=== PATIENT | male | born 1950 | race Caucasian/White ===

== ENCOUNTER → 2017-03-27 | Outpatient (CLI) | payer OTHER ==
[~2017-03-27] MED LIST: ASPI81TA94 PO; CALC500T6 PO; CETI10CA8 PO; DOC100 PO; LEV500 PO; METR-1 PO; MULT-1097 PO; OMEP-218 PO; PER PO; SIMV-44 PO; TEST2.5G TD; VITA-175 PO; [UNRECOGNIZED DRUG - CODE] TP
== END ==
LOC: LAB 08:00
PROVIDERS: ATTEND Family Medicine
DX: E29.1 Testicular hypofunction (principal)
CPT/HCPCS: 36415; 84403

== ENCOUNTER → 2017-06-03 | Outpatient (CLI) | payer OTHER ==
--- NOTE | 2017-06-03 14:10 | RADIOLOGY IMAGING REPORT ---
FACILITY: [facility] PATIENT NAME: Gavin Erickson : 1950 MR: [id number] V: [id number] EXAM DATE: [id number] ORDERING PHYSICIAN: PATRICIA VALENCIA TECHNOLOGIST: Location: [facility] - [place] Patient: Gavin Erickson : 1950 Visit/Account:[id number] Date of Sevice: 06/03/2017 Exam type: 5 views right knee History: Right knee pain, prior to the plateau fracture Comparison: 12/04/2006. Findings: Postoperative changes are noted from repair of a right medial tibial plateau fracture with a metallic sideplate and several transcortical screws. No hardware complication is seen. Mild degenerative ch anges in the medial compartment are noted. There may be a trace knee effusion. No acute osseous abn ormality seen. IMPRESSION: 1. Postoperative changes are noted from repair of a right medial tibial plateau fracture without abby dware complication. No acute osseous abnormality. 2. Osteopenia. Report Dictated By: Jessee Villatoro MD at 06/03/2017 2:03 PM Report E-Signed By: Jessee Villatoro MD at 06/03/2017 2:05 PM WSN:[email or web address]
== END ==
LOC: RAD 11:03
PROVIDERS: ATTEND Orthopaedic Surgery
DX: M85.88 Other specified disorders of bone density and structure, other site (principal); Z96.7 Presence of other bone and tendon implants

== ENCOUNTER 2017-07-22 14:15 | Outpatient (RCR) | payer OTHER ==
--- NOTE | 2017-06-10 13:53 | PT INITIAL EVALUATION ---
MEDICAL DIAGNOSIS: Right Knee Weakness and DJD TREATMENT DIAGNOSIS: Right Knee Weakness and DJD DATE OF ONSET: 06/09/17 SUBJECTIVE: Gavin is a 66 year old male presenting to physical therapy following the gradual onset and recent increase of R knee pain and weakness. Pt has a history of knee surgery on the R knee following tibial plateau fx with the insertion a plate and screws for stability. Recent imaging reports of the R knee describe DJD as well as some generalized edema in the posterior region without any hardware malfunction. Pt reports that he has also noticed R quad atrophy. Pt rates pain as 6-7/10 at worst with working out. Currently pain is rated at 2-3/10 with most pain on the medial anterior aspect with a generalized ache and tightness and occasional posterior knee pain and swelling. REHAB PROBLEM LIST: Increased Pain Decreased Strength Decreased Endurance Decreased Function Decreased ADL's Decreased Mobility PREVIOUS MEDICAL HISTORY: See EMR OCCUPATION: Retired OBJECTIVE: Pt shows slight R quad atrophy with mild edema present on the medial and posterior aspect of the R knee. ROM: B Knee ROM WFL Strength: LE MMT: Hip: Flexion: 4+/5 B, Ext: L 4/5, R 4-/5, Abd: L 4-/5, R 4+/5 , Add: B 4+/5. Knee: Ext: L 5/5, R 4+/5, Flexion: B 4+/5. Ankle: DF: B 5/5, PF : B 4/5. 1 RM: Quad: L 120#, R 90#. Hamstring: L 65#, R 58# Palpation: Pt is tender to palpation on the medial tibial plateau with hardware palpable along ridge. Special Tests: All knee ligamentous structures tested (-), slight increased MCL laxity Mobility: B Squat: Increased WB on L LE. SL Squat: R: significant contralateral hip collapse with lateral knee excursion. L: mild hip collapse. Other Objective Findings: Delayed VMO activation on 09/26 quad sets on the R. ASSESSMENT: Pt shows signs and symptoms consistent with decreased R knee mechanics secondary to hip weakness and poor neuromuscular activation. Physical therapy is indicated for this patient to improve knee mechanics to decrease pain and swelling and improve functional mobility with ADL's and recreational activities. Short Term Goals In 3 weeks pt will improve VMO activation with quad sets to equal with lateral quad activation on 11/26 for improved knee mechanics with ADL's. In 3 weeks pt will increase R hip abduction to 4/5 for improved function with ADL's and recreational activities. In 6 weeks pt will increase B LE MMT to >4/5 in all major muscle groups for improved function with ADL's and recreational activities. In 6 weeks pt will increase R quad 1 RM to >105# for improved functional balance between LE for decreased risk of injury and improved function with recreational activities and ADL's. Patient's Goals Decrease pain and improve strength. PLAN: Patient to be seen for Manual Therapy/STM/MET Strengthening/condition Ice/Heat Range of Motion Spinal Stabilization Ultrasound Stretching Iontophoresis Neuromuscular Re-ed Closed Chain Program Electrical Stim Posture/Body mechanics Gait Trg/Balance Trg Biofeedback Home Exercise Program Mech./Manual Traction Therapeutic Activities Pelvic Floor 2-3x/Week for 6 Weeks If you have any questions, comments, or concerns about this report or plan, please contact me at . Thank you, Mini Waters, PT, DPT, CLT [facility]
--- NOTE | 2017-07-11 09:18 | PT PLAN OF CARE ---
Physician: Toby Fay MD Patient is being seen: 2-3x/Day Therapist: Mini Waters, PT, DPT, CLT Medical Diagnosis: Right Knee Weakness and DJD Treatment Diagnosis: Right Knee Weakness and DJD Date of Onset: 06/09/17 Date of Initial Evaluation: 06/09/17 Date patient was last seen: 07/11/17 Number of treatments: 10 Number of cancellations/No shows: 1 INTERVENTIONS: Manual Therapy/STM/MET Strengthening/condition Ice/Heat Range of Motion Spinal Stabilization Ultrasound Stretching Iontophoresis Neuromuscular Re-ed Closed Chain Program Electrical Stim Posture/Body mechanics Gait Trg/Balance Trg Biofeedback Home Exercise Program Mech./Manual Traction Therapeutic Activities Pelvic Floor GOALS: In 3 weeks pt will improve VMO activation with quad sets to equal with lateral quad activation on 11/26 for improved knee mechanics with ADL's. In 3 weeks pt will increase R hip abduction to 4/5 for improved function with ADL's and recreational activities. MET In 6 weeks pt will increase B LE MMT to >4/5 in all major muscle groups for improved function with ADL's and recreational activities. In 6 weeks pt will increase R quad 1 RM to >105# for improved functional balance between LE for decreased risk of injury and improved function with recreational activities and ADL's. MET PATIENT'S GOAL: Decrease pain and improve strength. Status of Patient's Goals: 2/4 MET, 2/4 In Progress Patient Compliance: Good Prognosis: Good Reasons for continuing therapy: Gavin shows great progress with strength and improved functional mechanics with ambulating stairs and squatting for recreational activities. Lingering deficits remain in quad imbalance and hip strength and stability with occasional compensations still evident. Further PT is indicated for this patient to continue progress in LE strength and mobility. ROM: B Knee ROM WFL Strength: LE MMT: Hip: Flexion: 4+/5 B, Ext: L 4/5, R 4-/5, Abd: B 4+/5, Add: B 4+/5. Knee: Ext: LB 5/5, Flexion: B 4/5. Ankle: DF: B 5/5, PF: B 4/5. 1 RM: Quad: L 140#, R 125#. Hamstring: L 65#, R 58# Special Tests: All knee ligamentous structures tested (-), slight increased MCL laxity Mobility: B Squat: Good mechanics with equal WB. SL Squat: R: mild contralateral hip collapse with lateral knee excursion. L: mild hip collapse. If you have any questions or concerns, please feel free to contact me at . Thank you, Mini Waters, PT, DPT, CLT [facility]
--- NOTE | 2017-07-25 08:19 | PT PLAN OF CARE ---
Physician: Toby Fay MD Patient is being seen: 2x/Week Therapist: Mini Waters, PT, DPT, CLT Medical Diagnosis: Right Knee Weakness and DJD Treatment Diagnosis: Right Knee Weakness and DJD Date of Onset: 06/09/17 Date of Initial Evaluation: 06/09/17 Date patient was last seen: 07/24/17 Number of treatments: 14 Number of cancellations/No shows: 0 INTERVENTIONS: Manual Therapy/STM/MET Strengthening/condition Ice/Heat Range of Motion Spinal Stabilization Ultrasound Stretching Iontophoresis Neuromuscular Re-ed Closed Chain Program Electrical Stim Posture/Body mechanics Gait Trg/Balance Trg Biofeedback Home Exercise Program Mech./Manual Traction Therapeutic Activities Pelvic Floor GOALS: In 3 weeks pt will improve VMO activation with quad sets to equal with lateral quad activation on 11/26 for improved knee mechanics with ADL's. MET In 3 weeks pt will increase R hip abduction to 4/5 for improved function with ADL's and recreational activities. MET In 6 weeks pt will increase B LE MMT to >4/5 in all major muscle groups for improved function with ADL's and recreational activities. MET In 6 weeks pt will increase R quad 1 RM to >105# for improved functional balance between LE for decreased risk of injury and improved function with recreational activities and ADL's. MET PATIENT'S GOAL: Decrease pain and improve strength. Status of Patient's Goals: 4/4 MET Patient Compliance: Good Prognosis: Good Reasons for continuing therapy: Gavin is to discharge from physical therapy at this time secondary to completion of all 4/4 functional goals. Gavin shows improved knee and hip mechanics with increased strength and stability. Pt reports decreased pain overall and improved participation in recreational activities such as yoga. Upon discharge Gavin is to continue with [facility] for maintenance of strength and stability around the knee and hip joints. ROM: B Knee ROM WFL Strength: LE MMT: Hip: Flexion: 5/5 B, Ext: L 4+/5, R 5/5, Abd: B 5/5, Add: B 5 /5. Knee: Ext: B 5/5, Flexion: L 4+/5, R 5/5. Ankle: DF: B 5/5, PF: L 5/5, R 4+ /5. 1 RM: Quad: L 120#, R 125#. Hamstring: L 65#, R 60# Special Tests: All knee ligamentous structures tested (-), slight increased MCL laxity If you have any questions or concerns, please feel free to contact me at [phone]. Thank you, Mini Waters, PT, DPT, CLT MTDD
== END 2017-09-07 ==
LOC: PT 14:15
PROVIDERS: ATTEND Orthopaedic Surgery
DX: M62.81 Muscle weakness (generalized) (principal); M17.11 Unilateral primary osteoarthritis, right knee; R60.0 Localized edema; Z87.81 Personal history of (healed) traumatic fracture
CPT/HCPCS: 97161

== ENCOUNTER → 2017-08-17 | Outpatient (CLI) | payer OTHER ==
--- NOTE | 2017-08-17 12:09 | RADIOLOGY IMAGING REPORT ---
FACILITY: [facility] PATIENT NAME: Gavin Erickson : 1950 MR: [id number] V: [id number] EXAM DATE: ORDERING PHYSICIAN: CIARA BAUMANN TECHNOLOGIST: Location: [facility] - [place] Patient: Gavin Erickson : 1950 Visit/Account:[id number] Date of Sevice: 08/17/2017 Venous Doppler ultrasound left lower extremity Indication: Left leg pain and swelling.. Comparison: None Available Findings: Duplex Doppler and color flow imaging was performed. The common femoral, femoral, and popl iteal veins are all patent and compressible with normal Doppler wave forms. There are normal respons es to augmentation. The posterior tibial and peroneal veins are patent in the calf. The proximal greater saphenous vein is also normal. Subcutaneous tissues are unremarkable. IMPRESSION: 1. No evidence of deep venous thrombosis of the left lower extremity. Report Dictated By: Jessee Renee at 08/17/2017 12:05 PM Report E-Signed By: Jessee Renee at 08/17/2017 12:06 PM WSN:[id number]
== END ==
LOC: US 11:13
PROVIDERS: ATTEND Physician Assistant
DX: R60.9 Edema, unspecified (principal); M79.605 Pain in left leg

== ENCOUNTER → 2017-08-17 | Outpatient (REF) | payer OTHER | LOC: ZZSTITCHES 15:41 | PROVIDERS: ATTEND Physician Assistant | DX: R06.9 Unspecified abnormalities of breathing (principal); M79.605 Pain in left leg | CPT/HCPCS: 82040; 82247; 82310; 82374; 82435; 82565; 82947; 84075; 84132; 84155; 84295; 84450; 84460; 84520 ==

== ENCOUNTER → 2017-09-03 | Outpatient (CLI) | payer OTHER ==
[2017-09-03 08:41] LABS: LDL CHOLESTEROL 92 mg/dl
== END ==
LOC: LAB 07:56
PROVIDERS: ATTEND Family Medicine
DX: E78.00 Pure hypercholesterolemia, unspecified (principal)
CPT/HCPCS: 36415; 82040; 82247; 82310; 82374; 82435; 82465; 82565; 82947; 83718; 84075; 84132; 84155; 84295; 84450; 84460; 84478; 84520

== ENCOUNTER → 2017-10-01 | Outpatient (CLI) | payer OTHER | LOC: US 02:31 | PROVIDERS: ATTEND Family Medicine | DX: Z82.49 Family history of ischemic heart disease and other diseases of the circulatory system (principal) | CPT/HCPCS: 93306 ==

== ENCOUNTER → 2017-12-09 | Outpatient (REF) ==
[2017-12-09 11:40] LABS: LDL CHOLESTEROL 106 mg/dl
== END ==
DX: Z02.9 Encounter for administrative examinations, unspecified (principal)

== ENCOUNTER → 2018-06-05 | Outpatient (CLI) | payer OTHER ==
[~2018-06-05] MED LIST changes: -MULT-1097 PO; +MULT-1540 PO
[2018-06-05 09:06] LABS: LDL CHOLESTEROL 73 mg/dl
== END ==
LOC: LAB 08:23
PROVIDERS: ATTEND Family Medicine
DX: E78.00 Pure hypercholesterolemia, unspecified (principal); E29.1 Testicular hypofunction
CPT/HCPCS: 36415; 82040; 82247; 82310; 82374; 82435; 82465; 82565; 82947; 83718; 84075; 84132; 84155; 84295; 84403; 84450; 84460; 84478; 84520

== ENCOUNTER 2018-10-07 15:52 | Emergency (ER) | payer OTHER ==
[2018-10-07] MEDS ORDERED: DIPHTH/TETANUS/ACEL. PERTUSSIS IM ONLY ONE (16:30)
--- NOTE | 2018-10-07 16:30 | ER Report ---
History and Physical Time Seen By MD: 16:00 Hx. of Stated Complaint: PATIENT SLICED HIS FINGER WHILST CUTTING POTATOES HPI/ROS CHIEF COMPLAINT: Laceration to right index finger HISTORY OF PRESENT ILLNESS: 67 show male patient presents to emergency room with complaint of laceration to the right index finger. Patient states that he was using a mandolin blade to slice potato. He was making a skull potato dish for a friend of his whose spouse . He states that his pain attention cut his right finger. He states that he did have significant amount of bleeding. He did apply pressure, was unable to get the bleeding stopped. Patient states he is unsure of his last tetanus shot. He denies any numbness or tingling, any weakness to the finger. Patient has not taken any medication for this. Allergies: Coded Allergies: Penicillins (Verified Allergy, Mild, 08/31/12) Home Meds Reported Medications Multivitamin (ONE DAILY) 1 Each Tablet, 1 EACH PO QDAY 08/31/12 Calcium Carbonate (CALCIUM) 500 Mg Tablet, 500 MG PO 08/31/12 Vit D3/Vit E Ac/Safflower Oil (VITAMIN E OIL-VITAMIN D) 52 Ml Oil, 52 ML TP 08/31/12 Vitamin B Complex (B COMPLEX) 1 Each Tablet, 1 EACH PO QDAY 08/31/12 Aspirin (ASPIRIN) 81 Mg Tab.chew, 81 MG PO QDAY 08/31/12 Cetirizine Hcl (ZYRTEC) 10 Mg Capsule, 10 MG PO QDAY 08/31/12 TESTOSTERONE 1.62% Topical Gel (ANDROGEL 1.62% Topical Gel) 2.5 Gm Gel.packet, 2.5 GM TD QDAY 08/31/12 Simvastatin (Zocor) 40 Mg Tablet, 40 MG PO QHS, 0 Refills 10/09/10 Omeprazole Magnesium (Prilosec Otc) 20 Mg Tablet.dr, 20 MG PO QDAY, 0 Refills 10/09/10 Past Medical/Surgical History Patient has a past medical history of hyperlipidemia, reflux, knee fracture, alcohol use. Patient has a surgical history of LASIK eye surgery, right knee surgery, anal cyst removed. Patient has a family medical history of cancer, diabetes. Reviewed Nurses Notes: Yes Hx Smoking: No Hx Substance Use Disorder: No Hx Alcohol Use: Yes (2-3 A DAY) Constitutional Vital Sign - Last 24 Hours 10/07/18 10/07/18 15:58 16:44 Temp 98.4 Pulse 98 78 Resp 20 B/P (MAP) 136/86 135/78 (97) Pulse Ox 91 O2 Delivery Room Air Physical Exam General appearance: Alert no distress. Respiratory: Chest is non tender, lungs are clear to auscultation. Cardiac: Regular rate and rhythm. Skin: Patient has avulsion of the tip of the right finger, that is shallow in nature. It does have persistent bleeding. DIFFERENTIAL DIAGNOSIS: After history and physical exam differential diagnosis was considered for skin avulsion of right index finger Medical Decision Making ED Course/Re-evaluation ED Course Patient was admitted to an exam room, history and physical were obtained. Differential diagnoses were considered. I examination lungs are clear, heart is regular. Patient does have a skin avulsion of the right index finger. Does have persistent bleeding. A Tourni-cot was applied to the finger. That was able to get the bleeding under control. The finger was anesthetized, cleaned and cauterized using a cautery pen. Patient tolerated procedure well. We did remove the turnicot. Patient had no bleeding through the cautery. A pressure dressing was applied using bacitracin, Telfa, tube gauze. Patient tolerated procedure well. We will discharge him home at this time. He is follow-up with his primary care provider with any concerns. I anticipate it'll take approximately one month for complete healing. Patient is to keep wound dry for 48 hours. He is to follow -up with any concerns. Patient verbalized understanding and agreement with plan. Decision to Disposition Date: Oct 07, 2018 Decision to Disposition Time: 16:24 Depart Departure Latest Vital Signs Vital Signs Date Time Temp Pulse Resp B/P (MAP) Pulse Ox O2 Delivery O2 Flow Rate FiO2 10/07/18 16:44 78 135/78 (97) 10/07/18 15:58 98.4 20 91 Room Air Impression: Primary Impression: Laceration of finger of right hand Condition: Improved Disposition: HOME OR SELF-CARE Referrals: KRISTY BURROUGHS DO (PCP) Patient Instructions: Finger Laceration (ED) Additional Instructions: Keep wound covered with antibiotic ointment. Ibuprofen and Tylenol as needed for pain. Follow up with ED or PCP if pain becomes suddenly worse. Problem Qualifiers Primary Impression: Laceration of finger of right hand Encounter type: initial encounter Finger: index finger Damage to nail status: without damage Foreign body presence: without foreign body Qualified Codes: S61.210A - Laceration without foreign body of right index finger without damage to nail, initial encounter BARAK LOCKWOOD Oct 07, 2018 16:30
[2018-10-07 16:44] VITALS: BP 135/78
== END 2018-10-07 16:46 | disposition home or self-care (01) ==
LOC: ER 16:17
DX: S61.210A Laceration without foreign body of right index finger without damage to nail, initial encounter (principal)
CPT/HCPCS: 90471; 90715; 99283